=== PATIENT | male | born 1975 | race Caucasian/White ===

== ENCOUNTER 2016-12-14 12:26 | Emergency (ER) | payer MEDICAID ==
[~2016-12-14] VITALS: Ht 180.3 cm; Wt 85.0 kg
[~2016-12-14 12:26] MED LIST: PHEN30CA71
[2016-12-14] MEDS ORDERED: IBUPROFEN 600MG TABLET PO ONE (15:00)
[2016-12-14 15:23] VITALS: BP 138/72
== END 2016-12-14 16:34 | disposition home or self-care (01) ==
LOC: ER 14:09
DX: M25.512 Pain in left shoulder (principal); Z88.0 Allergy status to penicillin; Z79.899 Other long term (current) drug therapy; F17.200 Nicotine dependence, unspecified, uncomplicated; F12.10 Cannabis abuse, uncomplicated
CPT/HCPCS: 73030; 99284

== ENCOUNTER 2017-05-21 10:38 | Emergency (ER) | payer MEDICAID ==
[~2017-05-21] VITALS: Ht 175.3 cm; Wt 91.0 kg
[~2017-05-21 10:38] MED LIST changes: +PHEN-434; -PHEN30CA71
[2017-05-21] MEDS ORDERED: CYCLOBENZAPRINE 10MG TABLET PO ONE (13:15)
[2017-05-21] MEDS ORDERED: IBUPROFEN 400MG TABLET PO ONE (13:15)
[2017-05-21] MEDS ORDERED: ACETAMINOPHEN 325MG TABLET PO ONE (13:15)
[2017-05-21 14:46] LABS: CLARITY URINE CLEAR (CLEAR); COLOR URINE YELLOW (YELLOW); GLUCOSE URINE NEGATIVE (NEGATIVE); KETONES URINE NEGATIVE (NEGATIVE); LEUKOCYTE ESTERASE URINE NEGATIVE (NEGATIVE); NITRITE URINE NEGATIVE (NEGATIVE); OCCULT BLOOD URINE NEGATIVE (NEGATIVE); PH URINE 6.5 (4.5-8.0); PROTEIN URINE NEGATIVE (NEGATIVE); SPECIFIC GRAVITY URINE 1.018 (1.005-1.030); UROBILINOGEN URINE 0.2 E.U./dL (0.2-1.0)
[2017-05-21 15:10] VITALS: BP 110/73
== END 2017-05-21 15:25 | disposition home or self-care (01) ==
LOC: ER 13:42
DX: M54.5 Low back pain (principal); R56.9 Unspecified convulsions; F17.210 Nicotine dependence, cigarettes, uncomplicated; F12.10 Cannabis abuse, uncomplicated; Z88.0 Allergy status to penicillin
CPT/HCPCS: 81003; 99284; Z7610

== ENCOUNTER 2018-01-02 13:18 | Emergency (ER) | payer MEDICAID ==
[~2018-01-02] VITALS: Ht 167.6 cm; Wt 91.0 kg
[~2018-01-02 13:18] MED LIST changes: -PHEN-434; +PHEN100C4 PO
[2018-01-02 13:25] VITALS: BP 117/74
== END 2018-01-02 15:41 | disposition home or self-care (01) ==
LOC: ER 14:34
DX: M79.671 Pain in right foot (principal); F17.200 Nicotine dependence, unspecified, uncomplicated; F20.9 Schizophrenia, unspecified; Z88.0 Allergy status to penicillin
CPT/HCPCS: 73630; 99284; Z7610

== ENCOUNTER 2018-01-21 14:26 | Emergency (ER) | payer MEDICAID ==
[~2018-01-21] VITALS: Ht 172.7 cm; Wt 92.0 kg
[2018-01-21 15:29] LABS: EOSINOPHILS % 3.5 % (0.0-5.0); HEMATOCRIT. 43.2 % (42.0-52.0); HEMOGLOBIN. 14.3 g/dL (14.0-18.0); LYMPHOCYTES % 30.2 % (20.0-50.0); MEAN CORPUSCULAR HEMOGLOBIN 28.7 pg (28.0-32.0); MEAN CORPUSCULAR VOLUME 86.6 fL (80.0-94.0); MEAN PLATELET VOLUME 7.7 fl (7.4-10.4); MONOCYTES % 5.9 % (2.0-8.0); NEUTROPHILS % 59.4 % (40.0-76.0); PLATELET 301 x1000/uL (130-400); RED BLOOD CELL COUNT 4.99 mill/uL (4.7-6.1); RED CELL DISTRIBUTION WIDTH 13.4 % (11.6-14.6)
[2018-01-21 15:34] LABS: CHLORIDE 107 mEq/L (98-107)
[2018-01-21 15:35] LABS: PROTHROMBIN TIME 10.5 sec (9.4-11.6)
[2018-01-21] MEDS ORDERED: SODIUM CHLORIDE 0.9% 1,000 ML IV ONE (17:11)
[2018-01-21] MEDS ORDERED: MORPHINE SULFATE 4 MG/ML CPJ (NOT FOR IM USE) IV STA (17:11)
[2018-01-21] MEDS ORDERED: ONDANSETRON HCL 4MG/2ML VIAL IV STA (17:11)
[2018-01-21] MEDS ORDERED: IOHEXOL-300 100 ML BOTTLE ONE (19:16)
[2018-01-21 21:00] VITALS: BP 138/62
== END 2018-01-21 21:15 | disposition home or self-care (01) ==
LOC: ER 15:36
DX: R10.9 Unspecified abdominal pain (principal); F20.9 Schizophrenia, unspecified; R56.9 Unspecified convulsions; F31.9 Bipolar disorder, unspecified; F17.200 Nicotine dependence, unspecified, uncomplicated; D72.829 Elevated white blood cell count, unspecified; K57.30 Diverticulosis of large intestine without perforation or abscess without bleeding; Z88.0 Allergy status to penicillin
CPT/HCPCS: 36415; 74177; 80053; 80185; 83690; 85025; 85610; 96374; 96375; 99285; J2270; J2405; J7030; Q9967

== ENCOUNTER 2018-08-31 17:57 | Emergency (ER) | payer MEDICAID ==
[~2018-08-31] VITALS: Ht 177.8 cm; Wt 91.0 kg
[~2018-08-31 17:57] MED LIST changes: +GABA-531 PO; -PHEN100C4 PO; +PHEN300C6 PO
[2018-09-01] MEDS ORDERED: SODIUM CHLORIDE 0.9% 1,000 ML IV ONE (03:21)
[2018-09-01] MEDS ORDERED: ONDANSETRON HCL 4MG/2ML INJ IV STA (03:21)
[2018-09-01] MEDS ORDERED: MORPHINE SULFATE 4 MG/ML CPJ (NOT FOR IM USE) IV STA (03:21)
[2018-09-01 04:30] LABS: BASOPHILS % 0.6 % (0.0-2.0); EOSINOPHILS % 2.7 % (0.0-5.0); HEMATOCRIT. 47.1 % (42.0-52.0); HEMOGLOBIN. 15.5 g/dL (14.0-18.0); LYMPHOCYTES % 35.5 % (20.0-50.0); MEAN CORPUSCULAR HEMOGLOBIN 28.8 pg (28.0-32.0); MEAN CORPUSCULAR VOLUME 87.9 fL (80.0-94.0); MEAN PLATELET VOLUME 8.2 fl (7.4-10.4); MONOCYTES % 6.3 % (2.0-8.0); NEUTROPHILS % 54.9 % (40.0-76.0); PLATELET 236 x1000/uL (130-400); RED BLOOD CELL COUNT 5.36 mill/uL (4.7-6.1); RED CELL DISTRIBUTION WIDTH 13.7 % (11.6-14.6)
[2018-09-01 04:32] LABS: CHLORIDE 107 mEq/L (98-107)
[2018-09-01 06:08] LABS: CLARITY URINE CLEAR (CLEAR); COLOR URINE YELLOW (YELLOW); KETONES URINE NEGATIVE (NEGATIVE); LEUKOCYTE ESTERASE URINE NEGATIVE (NEGATIVE); NITRITE URINE NEGATIVE (NEGATIVE); OCCULT BLOOD URINE NEGATIVE (NEGATIVE); PH URINE 6.5 (4.5-8.0); PROTEIN URINE NEGATIVE (NEGATIVE); SPECIFIC GRAVITY URINE 1.007 (1.005-1.030); UROBILINOGEN URINE 0.2 E.U./dL (0.2-1.0)
[2018-09-01 06:26] VITALS: BP 126/66
== END 2018-09-01 06:33 | disposition home or self-care (01) ==
LOC: ER 17:57
DX: R10.13 Epigastric pain (principal); R11.2 Nausea with vomiting, unspecified; R19.7 Diarrhea, unspecified; F31.9 Bipolar disorder, unspecified; G40.909 Epilepsy, unspecified, not intractable, without status epilepticus; F20.9 Schizophrenia, unspecified; F17.200 Nicotine dependence, unspecified, uncomplicated; F12.10 Cannabis abuse, uncomplicated; Z90.49 Acquired absence of other specified parts of digestive tract; Z88.0 Allergy status to penicillin; Z86.73 Personal history of transient ischemic attack (TIA), and cerebral infarction without residual deficits
CPT/HCPCS: 36415; 71045; 74176; 80053; 81003; 83690; 83880; 84484; 85025; 93005; 96361; 96374; 96375; 99284; J2270; J2405; J7030

== ENCOUNTER 2019-02-01 14:12 | Emergency (ER) | payer MEDICAID ==
[~2019-02-01] VITALS: Ht 182.9 cm; Wt 87.0 kg
[2019-02-01] MEDS ORDERED: KETOROLAC 60MG/2ML VIAL IM ONE (16:15)
[2019-02-01 17:37] VITALS: BP 118/79
== END 2019-02-01 17:38 | disposition home or self-care (01) ==
LOC: ER 14:12
DX: M79.631 Pain in right forearm (principal); F12.10 Cannabis abuse, uncomplicated; F17.200 Nicotine dependence, unspecified, uncomplicated; F31.9 Bipolar disorder, unspecified; F20.9 Schizophrenia, unspecified; Z86.73 Personal history of transient ischemic attack (TIA), and cerebral infarction without residual deficits; Z90.49 Acquired absence of other specified parts of digestive tract; Z88.0 Allergy status to penicillin; Z79.899 Other long term (current) drug therapy; Z87.19 Personal history of other diseases of the digestive system
CPT/HCPCS: 29125; 73090; 96372; 99283; J1885

== ENCOUNTER 2019-07-12 10:39 | Emergency (ER) | payer MEDICAID ==
[~2019-07-12] VITALS: Ht 180.3 cm; Wt 90.0 kg
[2019-07-12] MEDS ORDERED: KETOROLAC 30MG/ML VIAL IM ONE (12:15)
[2019-07-12 14:15] VITALS: BP 118/86
== END 2019-07-12 14:16 | disposition home or self-care (01) ==
LOC: ER 10:39
DX: M79.602 Pain in left arm (principal); F17.200 Nicotine dependence, unspecified, uncomplicated; F12.10 Cannabis abuse, uncomplicated; F31.9 Bipolar disorder, unspecified; F20.9 Schizophrenia, unspecified; Z90.49 Acquired absence of other specified parts of digestive tract; Z88.0 Allergy status to penicillin
CPT/HCPCS: 73090; 73110; 96372; 99283; J1885

== ENCOUNTER 2020-06-19 10:12 | Emergency (ER) | payer MEDICAID ==
[~2020-06-19] VITALS: Ht 180.3 cm; Wt 91.0 kg
[2020-06-19] MEDS ORDERED: SODIUM CHLORIDE 0.9% 1,000 ML IV ONE (10:30)
[2020-06-19 11:04] LABS: BASOPHILS % 0.8 % (0.0-2.0); EOSINOPHILS % 1.6 % (0.0-5.0); HEMATOCRIT. 46.6 % (42.0-52.0); HEMOGLOBIN. 15.3 g/dL (14.0-18.0); LYMPHOCYTES % 30.1 % (20.0-50.0); MEAN CORPUSCULAR VOLUME 88.2 fL (80.0-94.0); MEAN PLATELET VOLUME 8.2 fl (7.4-10.4); MONOCYTES % 6.9 % (2.0-8.0); NEUTROPHILS % 60.6 % (40.0-76.0); PLATELET 250 x1000/uL (130-400); RED BLOOD CELL COUNT 5.29 mill/uL (4.7-6.1)
[2020-06-19 11:08] LABS: CHLORIDE 110 mEq/L (98-107)
[2020-06-19 11:12] LABS: ETHANOL BLOOD < 10 mg/dL
[2020-06-19] MEDS ORDERED: KETOROLAC 30MG/ML VIAL IV ONE (13:30)
[2020-06-19 14:07] VITALS: BP 119/67
[2020-06-19 14:10] LABS: *AMPHETAMINES SCREEN URINE NEGATIVE (NEGATIVE); *BARBITURATES SCREEN URINE NEGATIVE (NEGATIVE); *BENZODIAZEPINES SCREEN URINE NEGATIVE (NEGATIVE); *COCAINE SCREEN URINE NEGATIVE (NEGATIVE); METHADONE URINE SCREEN NEGATIVE (NEGATIVE); OPIATES URINE SCREEN NEGATIVE (NEGATIVE)
[2020-06-19 14:11] LABS: CANNABINOID URINE SCREEN PRESUMTIVE POSITIVE (NEGATIVE); PHENCYCLIDINE URINE SCREEN NEGATIVE (NEGATIVE)
== END 2020-06-19 14:23 | disposition home or self-care (01) ==
LOC: ER 11:41
DX: R07.89 Other chest pain (principal); M54.12 Radiculopathy, cervical region; F20.9 Schizophrenia, unspecified; F12.10 Cannabis abuse, uncomplicated; Z91.14 Patient's other noncompliance with medication regimen; Z88.0 Allergy status to penicillin; Z90.49 Acquired absence of other specified parts of digestive tract
CPT/HCPCS: 36415; 71045; 80053; 80185; 80305; 80320; 83880; 84484; 85025; 93005; 96361; 96374; 99285; J1885; J7030; G0480

== ENCOUNTER 2022-01-16 12:49 | Emergency (ER) | payer MEDICAID ==
[~2022-01-16] VITALS: Ht 165.1 cm; Wt 89.0 kg
[~2022-01-16 12:49] MED LIST changes: -GABA-531 PO; +GABA-532 PO
[2022-01-16 12:54] VITALS: BP 127/85
[2022-01-16] MEDS ORDERED: KETOROLAC 30MG/ML VIAL IM ONE (14:45)
[2022-01-16 15:10] LABS: CLARITY URINE CLOUDY (CLEAR); COLOR URINE DARK YELLOW (YELLOW); KETONES URINE TRACE (NEGATIVE); LEUKOCYTE ESTERASE URINE NEGATIVE (NEGATIVE); NITRITE URINE NEGATIVE (NEGATIVE); OCCULT BLOOD URINE NEGATIVE (NEGATIVE); PH URINE 5.5 (4.5-8.0); PROTEIN URINE 1+ (NEGATIVE); SPECIFIC GRAVITY URINE 1.037 (1.005-1.030)
== END 2022-01-16 15:57 | disposition home or self-care (01) ==
LOC: ER 12:49
DX: N50.812 Left testicular pain (principal); N43.3 Hydrocele, unspecified; N50.3 Cyst of epididymis; F31.9 Bipolar disorder, unspecified; F20.9 Schizophrenia, unspecified; Z90.49 Acquired absence of other specified parts of digestive tract; F12.10 Cannabis abuse, uncomplicated; Z88.0 Allergy status to penicillin
CPT/HCPCS: 76870; 81003; 93976; 99284; J1885

== ENCOUNTER 2023-10-23 15:45 | Emergency (ER) | payer MEDICAID ==
[~2023-10-23] VITALS: Ht 180.3 cm; Wt 101.0 kg
[2023-10-23 16:10] VITALS: BP 130/77; PULSE 95; RESP 16; TEMP 98.3; O2SAT 96
[2023-10-23] MEDS ORDERED: OFLO5DRO4 RIGHT EAR (17:00)
== END 2023-10-23 17:12 | disposition home or self-care (01) ==
LOC: ER 16:54
DX: H92.01 Otalgia, right ear (principal); I25.2 Old myocardial infarction; F12.10 Cannabis abuse, uncomplicated; Z86.73 Personal history of transient ischemic attack (TIA), and cerebral infarction without residual deficits; Z90.49 Acquired absence of other specified parts of digestive tract; Z88.0 Allergy status to penicillin
CPT/HCPCS: 99281; 99283

== ENCOUNTER 2024-01-31 15:27 | Emergency (ER) | payer MEDICAID ==
[~2024-01-31] VITALS: Ht 180.3 cm; Wt 106.0 kg
[~2024-01-31 15:27] MED LIST changes: +ASPI-1160 PO; +CLOP-31 PO; -GABA-532 PO; +HYDR-4001 MT; +ISOS30TA91 PO; +METO25TA6 PO; +OFLO5DRO4 RIGHT EAR; -PHEN300C6 PO
[2024-01-31 15:41] VITALS: BP 134/88; PULSE 106; RESP 12; TEMP 98.3; O2SAT 98
== END 2024-01-31 18:20 | disposition home or self-care (01) ==
LOC: ER 15:27
DX: M25.531 Pain in right wrist (principal); I25.2 Old myocardial infarction; F12.10 Cannabis abuse, uncomplicated; Z88.0 Allergy status to penicillin; Z86.59 Personal history of other mental and behavioral disorders; Z86.73 Personal history of transient ischemic attack (TIA), and cerebral infarction without residual deficits; Z90.49 Acquired absence of other specified parts of digestive tract
CPT/HCPCS: 73110; 99283

== ENCOUNTER 2024-02-28 01:53 | Emergency (ER) | payer MEDICAID ==
[~2024-02-28] VITALS: Ht 180.3 cm; Wt 105.0 kg
[2024-02-28 02:05] VITALS: O2SAT 98
[2024-02-28] MEDS ORDERED: HYDROCODONE/ACETAMINOPHEN 5/325MG TABLET PO ONE (02:30)
[2024-02-28 02:53] LABS: BASOPHILS % 0.8 % (0.0-2.0); EOSINOPHILS % 2.2 % (0.0-5.0); HEMATOCRIT. 48.3 % (42.0-52.0); HEMOGLOBIN. 15.7 g/dL (14.0-18.0); LYMPHOCYTES % 30.1 % (20.0-50.0); MEAN CORPUSCULAR HEMOGLOBIN 28.9 pg (28.0-32.0); MEAN CORPUSCULAR HGB CONC 32.5 g/dL (31.0-37.0); MEAN CORPUSCULAR VOLUME 88.9 fL (80.0-94.0); MEAN PLATELET VOLUME 8.6 fl (7.4-10.4); MONOCYTES % 6.7 % (2.0-8.0); NEUTROPHILS % 60.2 % (40.0-76.0); PLATELET 258 x1000/uL (130-400); RED BLOOD CELL COUNT 5.43 mill/uL (4.7-6.1); RED CELL DISTRIBUTION WIDTH 13.6 % (11.6-14.6)
[2024-02-28 02:57] LABS: CHLORIDE 107 mEq/L (98-107); SODIUM 138 mEq/L (136-145)
[2024-02-28 02:58] LABS: CARBON DIOXIDE 24 mEq/L (21-32)
[2024-02-28 02:59] LABS: CALCIUM 9.6 mg/dL (8.7-10.4)
[2024-02-28 03:03] LABS: GLUCOSE 91 mg/dL (70-105)
[2024-02-28 03:04] LABS: UREA NITROGEN BLOOD 9 mg/dL (9-23)
[2024-02-28 03:05] LABS: ALANINE AMINOTRANSFERASE 28 IU/L (10-49); ALBUMIN 4.6 g/dL (3.2-4.8); ASPARTATE AMINOTRANSFERASE 29 IU/L (<34)
[2024-02-28 03:06] LABS: BILIRUBIN TOTAL 0.3 mg/dL (0.1-1.0); PROTEIN TOTAL 7.7 g/dL (6.0-8.3)
[2024-02-28] MEDS: HYDROCODONE/ACETAMINOPHEN 5/325MG TABLET PO NR (03:09)
[2024-02-28 04:23] LABS: CLARITY URINE CLEAR (CLEAR); COLOR URINE DARK YELLOW (YELLOW); GLUCOSE URINE NEGATIVE (NEGATIVE); KETONES URINE TRACE (NEGATIVE); LEUKOCYTE ESTERASE URINE NEGATIVE (NEGATIVE); NITRITE URINE NEGATIVE (NEGATIVE); OCCULT BLOOD URINE NEGATIVE (NEGATIVE); PH URINE 5.5 (4.5-8.0); PROTEIN URINE TRACE (NEGATIVE); SPECIFIC GRAVITY URINE 1.029 (1.005-1.030)
[2024-02-28 04:35] LABS: BACTERIA URINE 1+; CALCIUM OXALATE CRYSTALS URINE 2+ /lpf; MUCUS URINE 3+ /lpf (NONE/TRACE); RBC URINE 0-2 /hpf (0-2); SQUAMOUS EPITHELIAL CELL URINE 1+ /lpf (RARE/1+); WBC URINE 0-2 /hpf (0-2)
[2024-02-28] MEDS ORDERED: BACL-141 MT (05:13)
[2024-02-28] MEDS ORDERED: ACET-2708 MT (05:13)
[2024-02-28] MEDS ORDERED: ONDA4TAB50 MT (05:13)
[2024-02-28 05:31] VITALS: BP 133/85; PULSE 99; RESP 18; TEMP 98.6
[2024-02-28] MEDS: HYDROCODONE/ACETAMINOPHEN 5/325MG TABLET PO ONE (06:47)
== END 2024-02-28 05:35 | disposition home or self-care (01) ==
LOC: ER 02:03
DX: R10.9 Unspecified abdominal pain (principal); I25.2 Old myocardial infarction; F12.90 Cannabis use, unspecified, uncomplicated; Z86.73 Personal history of transient ischemic attack (TIA), and cerebral infarction without residual deficits; Z90.49 Acquired absence of other specified parts of digestive tract; Z88.0 Allergy status to penicillin; Z88.8 Allergy status to other drugs, medicaments and biological substances
CPT/HCPCS: 36415; 71101; 74176; 80053; 81003; 85025; 93005; 99285

== ENCOUNTER 2024-03-04 19:27 | Emergency (ER) | payer MEDICAID ==
[~2024-03-04] VITALS: Ht 180.3 cm; Wt 105.0 kg
[~2024-03-04 19:27] MED LIST changes: +ACET-2708 MT; +BACL-141 MT; +ONDA4TAB50 MT
[2024-03-04 19:55] VITALS: O2SAT 98
[2024-03-04 20:17] LABS: BASOPHILS % 0.6 % (0.0-2.0); EOSINOPHILS % 1.7 % (0.0-5.0); HEMATOCRIT. 48.5 % (42.0-52.0); HEMOGLOBIN. 15.9 g/dL (14.0-18.0); LYMPHOCYTES % 30.1 % (20.0-50.0); MEAN CORPUSCULAR HEMOGLOBIN 29.2 pg (28.0-32.0); MEAN CORPUSCULAR HGB CONC 32.7 g/dL (31.0-37.0); MEAN CORPUSCULAR VOLUME 89.2 fL (80.0-94.0); MEAN PLATELET VOLUME 8.1 fl (7.4-10.4); MONOCYTES % 3.9 % (2.0-8.0); NEUTROPHILS % 63.7 % (40.0-76.0); PLATELET 250 x1000/uL (130-400); RED BLOOD CELL COUNT 5.44 mill/uL (4.7-6.1); RED CELL DISTRIBUTION WIDTH 13.5 % (11.6-14.6); WHITE BLOOD COUNT 13.3 x1000/uL (4.5-11.0)
[2024-03-04 20:24] LABS: CARBON DIOXIDE 29 mEq/L (21-32); CHLORIDE 108 mEq/L (98-107); POTASSIUM 4.3 mEq/L (3.5-5.1); SODIUM 142 mEq/L (136-145)
[2024-03-04 20:25] LABS: CALCIUM 10.1 mg/dL (8.7-10.4)
[2024-03-04 20:29] LABS: CREATININE 1.2 mg/dL (0.6-1.3)
[2024-03-04 20:30] LABS: GLUCOSE 109 mg/dL (70-105); UREA NITROGEN BLOOD 11 mg/dL (9-23)
[2024-03-04 20:31] LABS: ALANINE AMINOTRANSFERASE 28 IU/L (10-49); ALBUMIN 4.9 g/dL (3.2-4.8); ASPARTATE AMINOTRANSFERASE 25 IU/L (<34)
[2024-03-04 20:32] LABS: BILIRUBIN DIRECT 0.1 mg/dL (<=3.0); BILIRUBIN TOTAL 0.4 mg/dL (0.1-1.0); PROTEIN TOTAL 7.9 g/dL (6.0-8.3)
[2024-03-04] MEDS: ONDANSETRON 4MG ODT PO STA (22:39)
[2024-03-05] MEDS ORDERED: TRAM50TA3 MT (00:01)
[2024-03-05 00:28] VITALS: BP 133/77; PULSE 92; RESP 18; TEMP 98.3
[2024-03-05 02:09] LABS: CLARITY URINE CLEAR (CLEAR); COLOR URINE DARK YELLOW (YELLOW); GLUCOSE URINE NEGATIVE (NEGATIVE); KETONES URINE TRACE (NEGATIVE); PH URINE 5.5 (4.5-8.0); PROTEIN URINE TRACE (NEGATIVE); SPECIFIC GRAVITY URINE 1.031 (1.005-1.030)
[2024-03-05 02:10] LABS: LEUKOCYTE ESTERASE URINE NEGATIVE (NEGATIVE); NITRITE URINE NEGATIVE (NEGATIVE); OCCULT BLOOD URINE NEGATIVE (NEGATIVE)
[2024-03-05 02:19] LABS: RBC URINE 0-2 /hpf (0-2); SQUAMOUS EPITHELIAL CELL URINE NONE SEEN /lpf (RARE/1+); WBC URINE 0-2 /hpf (0-2)
[2024-03-05 02:25] LABS: BACTERIA URINE NONE SEEN
== END 2024-03-05 00:28 | disposition home or self-care (01) ==
LOC: ER 19:44
DX: R10.13 Epigastric pain (principal); F12.90 Cannabis use, unspecified, uncomplicated; I25.2 Old myocardial infarction; Z86.73 Personal history of transient ischemic attack (TIA), and cerebral infarction without residual deficits; Z90.49 Acquired absence of other specified parts of digestive tract; Z98.890 Other specified postprocedural states; Z88.8 Allergy status to other drugs, medicaments and biological substances; Z88.0 Allergy status to penicillin
CPT/HCPCS: 99284; 76705; 80076; 80048; 81003; 83690; 85025; 36415; 93005; Q0162

== ENCOUNTER 2024-07-08 03:49 | Emergency (ER) | payer MEDICAID ==
[~2024-07-08] VITALS: Ht 180.3 cm; Wt 78.8 kg
[~2024-07-08 03:49] MED LIST changes: +TRAM50TA3 MT
[2024-07-08 03:56] VITALS: O2SAT 99
[2024-07-08 04:49] LABS: CHLORIDE 110 mEq/L (98-107); SODIUM 141 mEq/L (136-145)
[2024-07-08 04:50] LABS: CARBON DIOXIDE 29 mEq/L (21-32)
[2024-07-08 04:51] LABS: CALCIUM 9.7 mg/dL (8.7-10.4)
[2024-07-08 04:55] LABS: CREATININE 0.9 mg/dL (0.6-1.3); GLUCOSE 84 mg/dL (70-105); UREA NITROGEN BLOOD 13 mg/dL (9-23)
[2024-07-08] MEDS ORDERED: IBUP-2029 MT (05:54)
[2024-07-08 06:08] VITALS: BP 110/71; PULSE 78; RESP 19; TEMP 36.78072; O2SAT 99
[2024-07-08] MEDS ORDERED: IBUPROFEN 600MG TABLET PO ONE (06:15)
== END 2024-07-08 06:13 | disposition home or self-care (01) ==
LOC: ER 03:49
DX: M71.21 Synovial cyst of popliteal space [Baker], right knee (principal); F12.90 Cannabis use, unspecified, uncomplicated; Z90.49 Acquired absence of other specified parts of digestive tract; Z86.73 Personal history of transient ischemic attack (TIA), and cerebral infarction without residual deficits; Z88.0 Allergy status to penicillin; Z79.899 Other long term (current) drug therapy
CPT/HCPCS: 36415; 80048; 93971; 99284

== ENCOUNTER 2025-06-01 01:48 | Inpatient (IN) | payer MEDICAID ==
[~2025-06-01] VITALS: Ht 177.8 cm; Wt 89.8 kg
[~2025-06-01 01:48] MED LIST changes: -BACL-141 MT; -HYDR-4001 MT; +LIP40 MT; +LIP40 PO; -OFLO5DRO4 RIGHT EAR; -ONDA4TAB50 MT; +PANT40TA51 PO; -TRAM50TA3 MT
[2025-06-01 01:52] VITALS: O2SAT 98
[2025-06-01] MEDS: ONDANSETRON HCL 4MG/2ML INJ IV ONE (02:42)
[2025-06-01] MEDS: SODIUM CHLORIDE 0.9% 1,000 ML IV ONE (02:43)
[2025-06-01] MEDS: MORPHINE SULFATE 4 MG/ML INJ (FOR IV/IM USE) IV ONE (02:43)
[2025-06-01 02:46] LABS: BASOPHILS % 1.0 % (0.0-2.0); EOSINOPHILS % 3.0 % (0.0-5.0); HEMATOCRIT. 43.5 % (42.0-52.0); HEMOGLOBIN. 14.3 g/dL (14.0-18.0); LYMPHOCYTES % 35.9 % (20.0-50.0); MEAN PLATELET VOLUME 8.0 fl (7.4-10.4); MONOCYTES % 7.2 % (2.0-8.0); NEUTROPHILS % 52.9 % (40.0-76.0); PLATELET 226 x1000/uL (130-400); RED BLOOD CELL COUNT 4.96 mill/uL (4.7-6.1); RED CELL DISTRIBUTION WIDTH 13.9 % (11.6-14.6)
[2025-06-01 02:55] LABS: INR 0.9
[2025-06-01 02:57] LABS: CREATININE 0.8 mg/dL (0.6-1.3); UREA NITROGEN BLOOD 8 mg/dL (9-23)
[2025-06-01 02:59] LABS: ASPARTATE AMINOTRANSFERASE 19 IU/L (<34); BILIRUBIN DIRECT < 0.1 mg/dL (<=3.0); BILIRUBIN TOTAL 0.2 mg/dL (0.1-1.0); PROTEIN TOTAL 6.8 g/dL (6.0-8.3)
[2025-06-01 03:02] LABS: TROPONIN I HIGH SENSITIVITY 102 ng/L (3.0-53)
[2025-06-01 05:11] LABS: TROPONIN I HIGH SENSITIVITY 286 ng/L (3.0-53)
[2025-06-01 08:00] VITALS: BP 113/75; PULSE 69; RESP 16; TEMP 36.5; O2SAT 100
[2025-06-01] MEDS ORDERED: MAGNESIUM/ALUMINUM HYDROXIDE/SIMETHICONE 30ML UDC PO PRN (09:30)
[2025-06-01] MEDS ORDERED: CLONIDINE 0.1MG TABLET PO PRN (09:30)
[2025-06-01] MEDS ORDERED: IPRATROPIUM/ALBUTEROL 0.5-3(2.5)MG/3ML NEB NEB PRN (09:30)
[2025-06-01] MEDS: HYDROMORPHONE HCL/PF 2MG/ML INJ IV PRN (11:49)
[2025-06-01 12:00] VITALS: BP 125/83; PULSE 65; RESP 16; TEMP 36.3; O2SAT 100
[2025-06-01 12:17] VITALS: BP 113/75; PULSE 69; RESP 16; TEMP 36.5292
[2025-06-01 13:11] LABS: CLARITY URINE CLEAR (CLEAR); COLOR URINE YELLOW (YELLOW); GLUCOSE URINE NEGATIVE (NEGATIVE); KETONES URINE NEGATIVE (NEGATIVE); LEUKOCYTE ESTERASE URINE NEGATIVE (NEGATIVE); NITRITE URINE NEGATIVE (NEGATIVE); OCCULT BLOOD URINE NEGATIVE (NEGATIVE); PH URINE 7.5 (4.5-8.0); PROTEIN URINE NEGATIVE (NEGATIVE); SPECIFIC GRAVITY URINE 1.010 (1.005-1.030); UROBILINOGEN URINE 0.2 E.U./dL (0.2-1.0)
[2025-06-01 13:25] LABS: *AMPHETAMINES SCREEN URINE NEGATIVE (NEGATIVE); *BARBITURATES SCREEN URINE NEGATIVE (NEGATIVE); *BENZODIAZEPINES SCREEN URINE NEGATIVE (NEGATIVE); *COCAINE SCREEN URINE NEGATIVE (NEGATIVE); METHADONE URINE SCREEN NEGATIVE (NEGATIVE)
[2025-06-01 13:26] LABS: OPIATES URINE SCREEN PRESUMPTIVE POSITIVE (NEGATIVE)
[2025-06-01 13:27] LABS: CANNABINOID URINE SCREEN PRESUMPTIVE POSITIVE (NEGATIVE); ECSTASY MDMA SCREEN URINE NEGATIVE (NEGATIVE); PHENCYCLIDINE URINE SCREEN NEGATIVE (NEGATIVE)
[2025-06-01 16:00] VITALS: BP 118/79; PULSE 76; RESP 18; TEMP 36.5; O2SAT 96
[2025-06-01 17:56] LABS: CREATINE KINASE MB FRACTION 3.2 ng/mL (0.5-3.6)
[2025-06-01 17:59] LABS: TROPONIN I HIGH SENSITIVITY 1385.0 ng/L (3.0-53)
[2025-06-01] MEDS: ENOXAPARIN 80MG/0.8ML SYR SUBCUT SCH (18:40)
[2025-06-01 20:00] VITALS: BP 122/83; PULSE 76; RESP 18; TEMP 36.5; O2SAT 94
[2025-06-01] MEDS: ATORVASTATIN CALCIUM 40MG TABLET PO SCH (20:41)
[2025-06-01] MEDS: METOPROLOL TARTRATE 25MG TABLET PO SCH (20:42)
[2025-06-01] MEDS ORDERED: ZOLPIDEM TARTRATE 5MG TABLET PO PRN (21:00)
[2025-06-01 23:46] LABS: CREATINE KINASE MB FRACTION 2.4 ng/mL (0.5-3.6)
[2025-06-01 23:47] LABS: TROPONIN I HIGH SENSITIVITY 1243.0 ng/L (3.0-53)
[2025-06-02] VITALS: BP 129/85; PULSE 80; RESP 19; TEMP 36.8; O2SAT 99
[2025-06-02 04:00] VITALS: BP 100/64; PULSE 60; RESP 18; TEMP 36.2; O2SAT 97
[2025-06-02 08:00] VITALS: BP 114/72; PULSE 65; RESP 17; TEMP 36.6; O2SAT 100
[2025-06-02] MEDS: ISOSORBIDE MONONITRATE 30MG TABLET SR 24HR PO SCH (09:00)
[2025-06-02] MEDS ORDERED: ATORVASTATIN CALCIUM 40MG TABLET PO SCH (09:00)
[2025-06-02] MEDS ORDERED: HEPARIN 1000 UNITS/ML 10ML ONE (09:24)
[2025-06-02] MEDS ORDERED: VERAPAMIL HCL 2.5 MG/1 ML 2ML VIAL IV ONE (09:24)
[2025-06-02] MEDS ORDERED: DIPHENHYDRAMINE 50MG/ML VIAL ONE (09:24)
[2025-06-02] MEDS ORDERED: IODIXANOL 320MG/ML 100 ML BOTTLE IV ONE (09:24)
[2025-06-02] MEDS ORDERED: LIDOCAINE HCL 1% 20ML VIAL ONE ×2 (09:24→12:31)
[2025-06-02] MEDS: CLOPIDOGREL 75MG TABLET PO SCH (09:28)
[2025-06-02] MEDS: ASPIRIN 81MG TABLET PO SCH (09:28)
[2025-06-02] MEDS: HYDROCODONE/ACETAMINOPHEN 5/325MG TABLET PO PRN (09:30)
[2025-06-02] MEDS ORDERED: MIDAZOLAM HCL 2 MG/2 ML VIAL ONE (10:35)
[2025-06-02] MEDS ORDERED: FENTANYL CITRATE/PF 50MCG/ML 2ML VIAL ONE (10:35)
[2025-06-02] MEDS ORDERED: NALOXONE HCL 0.4MG/ML VIAL IV PRN (11:30)
[2025-06-02 11:36] VITALS: BP 124/91; PULSE 95; RESP 22; TEMP 36.8; O2SAT 95
[2025-06-02] MEDS ORDERED: ATROPINE SULFATE 1MG/10ML SYR IV PRN (12:00)
[2025-06-02 16:00] VITALS: BP 116/97; PULSE 75; RESP 18; TEMP 36.8; O2SAT 97
[2025-06-02 20:00] VITALS: BP 128/81; PULSE 80; RESP 14; TEMP 36.6; O2SAT 96
[2025-06-03] VITALS: BP 123/77; PULSE 63; RESP 14; TEMP 36.6; O2SAT 97
[2025-06-03 04:00] VITALS: BP 119/83; PULSE 67; RESP 14; TEMP 36.8; O2SAT 96
[2025-06-03 07:20] LABS: BASOPHILS % 0.6 % (0.0-2.0); EOSINOPHILS % 2.0 % (0.0-5.0); HEMATOCRIT. 49.8 % (42.0-52.0); HEMOGLOBIN. 16.3 g/dL (14.0-18.0); LYMPHOCYTES % 24.4 % (20.0-50.0); MEAN PLATELET VOLUME 8.2 fl (7.4-10.4); MONOCYTES % 6.8 % (2.0-8.0); NEUTROPHILS % 66.2 % (40.0-76.0); PLATELET 214 x1000/uL (130-400); RED BLOOD CELL COUNT 5.70 mill/uL (4.7-6.1); RED CELL DISTRIBUTION WIDTH 13.5 % (11.6-14.6)
[2025-06-03 07:23] LABS: CREATININE 0.8 mg/dL (0.6-1.3); UREA NITROGEN BLOOD 7 mg/dL (9-23)
[2025-06-03 08:00] VITALS: BP 125/88; PULSE 67; RESP 16; TEMP 36.7; O2SAT 96
[2025-06-03 12:00] VITALS: BP 115/78; PULSE 70; RESP 16; TEMP 36.7; O2SAT 96
[2025-06-03] MEDS: ACETAMINOPHEN 325MG TABLET PO PRN (12:39)
[2025-06-03 16:00] VITALS: BP 102/74; PULSE 75; RESP 18; TEMP 36.7; O2SAT 94
[2025-06-03 20:00] VITALS: BP 121/73; PULSE 94; RESP 16; TEMP 36.7; O2SAT 98
[2025-06-04] VITALS (8 sets, daily range): BP systolic 112–129; BP diastolic 76–88; PULSE 69–90; RESP 14–22; TEMP 36.4–36.7; O2SAT 93–99
[2025-06-04] MEDS: HYDROMORPHONE HCL/PF 1MG/ML INJ IV PRN (00:26)
[2025-06-04] MEDS ORDERED: LOV80 SUBCUT (10:18)
[2025-06-04] MEDS: ACETAMINOPHEN 325MG TABLET PO PRN (15:02)
[2025-06-05] VITALS: PULSE 74; RESP 15; TEMP 36.9; O2SAT 94
[2025-06-05 04:46] VITALS: BP 110/84; PULSE 78; RESP 15; TEMP 37.2; O2SAT 96
[2025-06-05 08:00] VITALS: BP 131/97; PULSE 97; RESP 22; TEMP 36.7; O2SAT 97
[2025-06-05 12:00] VITALS: BP 124/91; PULSE 86; RESP 19; TEMP 36.7; O2SAT 97
[2025-06-05] MEDS: ONDANSETRON HCL 4MG/2ML INJ IV PRN (12:54)
[2025-06-05] MEDS: HYDROCODONE/ACETAMINOPHEN 10/325MG TABLET PO PRN (13:28)
[2025-06-05 16:00] VITALS: BP 114/71; PULSE 80; RESP 17; TEMP 37; O2SAT 98
[2025-06-05 20:00] VITALS: BP 109/72; PULSE 81; RESP 17; TEMP 36.3; O2SAT 97
[2025-06-06] VITALS: BP 116/83; PULSE 65; RESP 15; TEMP 36.7; O2SAT 98
[2025-06-06 04:00] VITALS: BP 130/95; PULSE 90; RESP 19; TEMP 36.8; O2SAT 95
[2025-06-06 08:00] VITALS: BP 128/87; PULSE 94; RESP 14; TEMP 36.7; O2SAT 98
[2025-06-06 12:00] VITALS: BP 120/79; PULSE 70; RESP 11; TEMP 36.8; O2SAT 100
[2025-06-06] MEDS: ACETAMINOPHEN 325MG TABLET PO PRN (12:49)
[2025-06-06 16:00] VITALS: BP 103/69; PULSE 94; RESP 14; TEMP 36.6; O2SAT 97
[2025-06-06] MEDS: LACTULOSE 20G/30ML UDC PO PRN (17:53)
[2025-06-06 20:00] VITALS: BP 117/76; PULSE 78; RESP 14; TEMP 36.7; O2SAT 96
[2025-06-07] VITALS: BP 111/84; PULSE 79; RESP 20; TEMP 36.6; O2SAT 95
[2025-06-07 04:00] VITALS: BP 118/76; PULSE 75; RESP 16; TEMP 36.8; O2SAT 94
[2025-06-07 08:00] VITALS: BP 111/91; PULSE 88; RESP 17; TEMP 36.3; O2SAT 95
[2025-06-07 12:00] VITALS: BP 106/79; PULSE 73; RESP 16; TEMP 36.7; O2SAT 96
[2025-06-07 15:22] VITALS: BP 106/79; PULSE 73; RESP 16; TEMP 98
== END 2025-06-07 15:17 | disposition short-term general hospital (02) | DRG 192 ==
LOC: ER 02:37 → 6WST 03:55 → EDBEDREQ 04:17 → EDBEDREQTM 04:17 → ENRESERV 07:09 → 3WST 06-02 11:26
PROVIDERS: ADMIT Internal Medicine; ATTEND Internal Medicine
PROC: 4A023N7 Measurement of Cardiac Sampling and Pressure, Left Heart, Percutaneous Approach (ICD-10-PCS; principal; 2025-06-02)
PROC: B211YZZ Fluoroscopy of Multiple Coronary Arteries using Other Contrast (ICD-10-PCS; 2025-06-02)
PROC: 5A0935A Assistance with Respiratory Ventilation, Less than 24 Consecutive Hours, High Flow/Velocity Cannula (ICD-10-PCS; 2025-06-04)
DX: T82.855A Stenosis of coronary artery stent, initial encounter (principal); I21.4 Non-ST elevation (NSTEMI) myocardial infarction; I11.0 Hypertensive heart disease with heart failure; I50.9 Heart failure, unspecified; Z20.822 Contact with and (suspected) exposure to COVID-19; I25.10 Atherosclerotic heart disease of native coronary artery without angina pectoris; Y83.1 Surgical operation with implant of artificial internal device as the cause of abnormal reaction of the patient, or of later complication, without mention of misadventure at the time of the procedure; E78.5 Hyperlipidemia, unspecified; Z79.899 Other long term (current) drug therapy; Z88.0 Allergy status to penicillin; Z88.1 Allergy status to other antibiotic agents; Y92.89 Other specified places as the place of occurrence of the external cause; Z87.891 Personal history of nicotine dependence
CPT/HCPCS: 36415; 71045; 80048; 80076; 80305; 81003; 82550; 82553; 83880; 84484; 85025; 85379; 87426; 93005; 93458; 93970; 96361; 96374; 96375; 99285; A4606; C1769; C1887; C1893; J1171; J1200; J1644; J1650; J2003; J2250; J2270; J2405; J3010; J3490; J7030; Q9967